=== PATIENT | male | born 1940 | race Caucasian/White ===

== ENCOUNTER 2016-07-04 02:29 | Emergency (ER) | payer OTHER, MEDICARE ==
--- NOTE | 2016-07-04 03:00 | ERPHSYRPT ---
- History of Present Illness Time Seen by Provider: 07/04/16 02:54 Source: patient Exam Limitations: no limitations Physician History: This is a 76-year-old white male with a history of atherosclerotic coronary artery disease, myocardial infarction, cardiac pacer/defibrillator, cardiac stents. He arrives with complaint that his pacer/defibrillator is alarming symptoms since 9:30 PM. Patient states has been alarming every 3 hours since that time. He denies any shortness of breath she denies any chest pain he states his defibrillator is not firing. He really denies any complaints other than the alarming of his pacer defibrillator. Past medical history includes coronary artery disease, high blood pressure, myocardial infarction, pacer defibrillator, cardiac stents. Past surgical history includes pacer defibrillator placement, cardiac stents, hernia repair. Timing/Duration: today Severity: mild Modifying Factors: Improves With: nothing Associated Symptoms: other (patient's pacer/defibrillator has been alarming), No nausea, No vomiting, No abdominal pain, No shortness of breath, No heartburn , No diaphoresis, No cough, No chills, No chest pain, No fever, No headaches, No loss of appetite, No malaise, No rash, No syncope, No seizure, No weakness Allergies/Adverse Reactions: terazosin Allergy (Verified 08/24/15 03:58) Home Medications: Amiodarone HCl 200 mg [Cordarone 200 MG] 08/24/15 [History] Aspirin 81 gm Chew [Baby Aspirin 81 mg Chew] 08/24/15 [History] Cholecalciferol (Vitamin D3) [Vitamin D-3] 08/24/15 [History] Levothyroxine Sodium [Tirosint] 08/24/15 [History] Losartan/Hydrochlorothiazide [Losartan-Hctz 50-12.5 mg Tab] 08/24/15 [History] Metoprolol Tartrate 08/24/15 [History] Simvastatin 40 mg [Zocor 40 mg] 08/24/15 [History] Tamsulosin HCl [Flomax] 08/24/15 [History] Warfarin Sodium 3 mg [Coumadin 3 MG] 08/24/15 [History] Hx Tetanus, Diphtheria Vaccination/Date Given: Yes Hx Influenza Vaccination/Date Given: Yes Hx Pneumococcal Vaccination/Date Given: Yes - Review of Systems Constitutional: No Fever, No Chills Eyes: No Symptoms Ears, Nose, & Throat: No Symptoms Respiratory: No Cough, No Dyspnea Cardiac: No Symptoms, Other (Patient's pacer/defibrillator has been alarming), No Chest Pain, No Edema, No Palpitations, No Syncope, No Orthopnea, No PND Abdominal/Gastrointestinal: No Abdominal Pain, No Nausea, No Vomiting, No Diarrhea Genitourinary Symptoms: No Dysuria Musculoskeletal: No Back Pain, No Neck Pain Skin: No Rash Neurological: No Dizziness, No Focal Weakness, No Sensory Changes Psychological: No Symptoms Endocrine: No Symptoms All Other Systems: Reviewed and Negative - Past Medical History Pertinent Past Medical History: Yes Cardiac History: Coronary Artery Disease, Hypertension, Myocardial Infarction ( [place]), Other Other Medical History: pacer/aicd to left chest/ stents in the past to heart - Past Surgical History Past Surgical History: Yes Gastrointestinal: Hernia Repair Other Surgical History: pacer aicd placement, past GI surgery - Social History Smoking Status: Never smoker Exposure to second hand smoke: No Drug Use: none Patient Lives Alone: No - Nursing Vital Signs Nursing Vital Signs: Initial Vital Signs Pulse Rate [Radial] 72 Pulse Rate 59 Respiratory Rate 18 Blood Pressure 101/60 Pain Intensity 0 - Physical Exam General Appearance: no apparent distress, alert Eye Exam: PERRL/EOMI, eyes nml inspection Ears, Nose, Throat Exam: normal ENT inspection, TMs normal, pharynx normal, moist mucous membranes Neck Exam: normal inspection, non-tender, supple, full range of motion Respiratory Exam: normal breath sounds, lungs clear, other (pacer/defibrillator in place left upper chest), No respiratory distress Cardiovascular Exam: regular rate/rhythm, normal heart sounds, normal peripheral pulses Gastrointestinal/Abdomen Exam: soft, normal bowel sounds, No tenderness, No mass Back Exam: normal inspection, normal range of motion, No CVA tenderness, No vertebral tenderness Extremity Exam: normal inspection, normal range of motion, pelvis stable Neurologic Exam: alert, oriented x 3, cooperative, normal mood/affect, nml cerebellar function, nml station & gait, sensation nml, No motor deficits Skin Exam: normal color, warm, dry, No rash Lymphatic Exam: No adenopathy SpO2 Interpretation: normal - Course Nursing assessment & vital signs reviewed: Yes EKG Interpreted by Me: RATE (50 bpm), Left [place] Deviation, Other (paced rhythm 50 bpm intraventricular conduction delay, no acute st/t wave changes, no old ekg 's for comparison) Ordered Tests: Active Orders 24 hr Category Date Time Status EKG-ER Only STAT Care 07/04/16 02:52 Active IV Insertion STAT Care 07/04/16 02:53 Inactive CBC W DIFF Stat Lab 07/04/16 03:05 Completed CMP Stat Lab 07/04/16 03:05 Completed TROPONIN Q3H Lab 07/04/16 03:05 Completed TROPONIN Q3H Lab 07/04/16 06:00 Ordered TROPONIN Q3H Lab 07/04/16 09:00 Ordered TROPONIN Q3H Lab 07/04/16 12:00 Ordered TROPONIN Q3H Lab 07/04/16 15:00 Ordered Lab/Rad Data: Laboratory Result Diagrams 07/04/16 03:05 07/04/16 03:05 Laboratory Results 07/04/16 07/04/16 07/04/16 Range/Units 03:05 03:05 03:05 WBC 6.0 (4.0-10.5) K/mm3 RBC 3.91 L (4.1-5.6) M/mm3 Hgb 12.3 L (12.5-18.0) gm/dl Hct 37.5 L (42-50) % MCV 95.9 (78-100) fl MCH 31.4 (26-32) pg MCHC 32.8 (32-36) g/dl RDW 13.6 (11.5-14.0) % Plt Count 161 (150-450) K/mm3 MPV 9.4 (6-9.5) fl Gran % 53.3 (36.0-66.0) % Lymphocytes % 26.7 (24.0-44.0) % Monocytes % 17.0 H (0.0-12.0) % Eosinophils % 2.7 (0.00-5.0) % Basophils % 0.3 (0.0-0.4) % Basophils # 0.02 (0-0.4) Sodium 146 H (136-145) mEq/L Potassium 4.0 (3.5-5.1) mEq/L Chloride 107 (98-107) mEq/L Carbon Dioxide 30.8 (21-32) mEq/L Anion Gap 11.8 (5-15) MEQ/L BUN 24 H (9-20) mg/dL Creatinine 1.37 H (0.55-1.30) mg/dl Estimated GFR 54 ML/MIN Glucose 106 (70-110) MG/DL Calcium 8.7 (8.5-10.1) mg/dL Total Bilirubin 0.5 (0.2-1.0) mg/dL AST 13 L (15-37) U/L ALT 15 (12-78) U/L Alkaline Phosphatase 72 (46-116) U/L Troponin I < 0.017 (0.000-0.056) ng/ml Serum Total Protein 6.5 (6.4-8.2) gm/dL Albumin 3.3 L (3.4-5.0) g/dL - Progress Progress: improved Progress Note: 07/04/16 02:58 This is a 76-year-old white male with history of atherosclerotic coronary artery disease who has a cardiac pacer/defibrillator in place he arrives with complaints that the pacer/defibrillator has been alarming since 9:30 this evening and has been going off every 3 hours since. Patient denies any chest pain shortness of breath he states he does not feel ill. Patient states he was unable to reach the people who produced his pacer defibrillator. Patient appears to be stable vitals are stable. We did contact the patient's defibrillator contact source.([employer]) And they stated that if the patient has a normal EKG and labs and appears to be hemodynamically stable. That he should return home where he has the monitor for his device. And contact his cardiac clinic in the morning. Will go ahead and obtain CBC, CMP, troponin, EKG. If these appear to be stable will consider discharge. 07/04/16 03:26 07/04/16 03:53 Patient with no distress. EKG shows 1 paced beat no acute changes. Troponin CBC CMP essentially normal. Patient has been stable on the monitor. Will plan to discharge. ER audio visual secretary has gone over patient's contact for his [employer] rental sales representative hotline with the patient. Patient to contact his clinic in the morning. Return for any problems. - Departure Time of Disposition: 03:54 Departure Disposition: Home Clinical Impression: Pacemaker complications Qualifiers: Encounter type: initial encounter Qualified Code(s): T82.9XXA - Unspecified complication of cardiac and vascular prosthetic device, implant and graft, initial encounter Condition: Fair Critical Care Time: No Additional Instructions: Return home. Rest. Follow-up with your cardiac clinic tomorrow (call) Contact [employer] rental sales representative hot line if problems. Return for any problems. Return for acute distress or for severe symptoms.
[2016-07-04 03:11] LABS: BASOPHIL % 0.3 % (0.0-0.4); Eosinophil % 2.7 % (0.00-5.0); Granulocytes % 53.3 % (36.0-66.0); Lymphocytes % 26.7 % (24.0-44.0); Mean Cell Volume 95.9 fl (78-100); Mean Platelet Volume 9.4 fl (6-9.5); Platelet Count 161 K/mm3 (150-450); Red Blood Count 3.91 M/mm3 (4.1-5.6); Red Cell Distribution Width 13.6 % (11.5-14.0)
[2016-07-04 03:13] LABS: Mean Corpuscular Hemoglobin 31.4 pg (26-32)
[2016-07-04 03:35] LABS: ALBUMIN 3.3 g/dL (3.4-5.0); ANION GAP 11.8 MEQ/L (5-15); BILIRUBIN,TOTAL 0.5 mg/dL (0.2-1.0); Carbon Dioxide 30.8 mEq/L (21-32); Total Protein 6.5 gm/dL (6.4-8.2)
[2016-07-04 04:14] VITALS: BP 108/78; PULSE 72; O2SAT 99
== END 2016-07-04 04:15 | disposition home or self-care (01) ==
LOC: ED 02:29
DX: T82.9XXA Unspecified complication of cardiac and vascular prosthetic device, implant and graft, initial encounter (principal); I25.10 Atherosclerotic heart disease of native coronary artery without angina pectoris; I10 Essential (primary) hypertension; I25.2 Old myocardial infarction; Z98.61 Coronary angioplasty status; Z79.899 Other long term (current) drug therapy; Z79.01 Long term (current) use of anticoagulants
CPT/HCPCS: 36415; 80053; 84484; 85025; 93005; 99283

== ENCOUNTER 2020-11-10 16:52 | Emergency (ER) | payer MEDICARE, OTHER ==
[2020-11-10] MEDS ORDERED: TYLENOL 325 MG PO ONE (17:15)
[2020-11-10] MEDS ORDERED: Sodium Chloride 0.9% 500 ML 500 ML IV ONE ×2 (17:18→18:25)
[2020-11-10 17:41] LABS: Absolute Neutrophil Ct (ANC) 12.71 (1.4-6.9); BASOPHIL % 0.1 % (0.0-0.4); Basophil (Absolute #) 0.01 (0-0.4); Eosinophil % 0.1 % (0.00-5.0); Eosinophil (Absolute #) 0.01 (0-0.5); Hematocrit 37.9 % (42-50); Hemoglobin 12.2 gm/dl (12.5-18.0); Lymphocyte (Absolute #) 1.26 (1.0-4.6); Lymphocytes % 8.1 % (24.0-44.0); Mean Cell Volume 96.7 fl (78-100); Mean Corpuscular Hemoglobin 31.1 pg (26-32); Mean Corpuscular Hgb Concent. 32.2 g/dl (32-36); Mean Platelet Volume 10.2 fl (7.5-11.0); Monocyte (Absolute #) 1.49 (0.0-1.3); Monocytes % 9.6 % (0.0-12.0); Neutrophil % 82.1 % (36.0-66.0); Platelet Count 175 K/mm3 (150-450); Red Blood Count 3.92 M/mm3 (4.1-5.6); Red Cell Distribution Width 13.7 % (11.5-14.0); White Blood Count 15.5 K/mm3 (4.0-10.5)
--- NOTE | 2020-11-10 17:41 | ERPHSYRPT ---
- History of Present Illness Time Seen by Provider: 11/10/20 17:04 Source: patient Exam Limitations: no limitations Patient Subjective Stated Complaint: pt here fever, not eating well, urinary urgency since sat Triage Nursing Assessment: pt alert, resp easy, skin w/d/p, no edema noted Physician History: 80 years old male presented in the ER with chief complaint of intermittent fever for the last 3 days with a T-max of 102 prior to arrival today. Is also having generalized weakness fatigue and tiredness with lack of appetite. Minimal nonproductive cough without any chest pain or shortness of breath. No abdominal pain nausea or vomiting. Patient also report having mild dysuria earlier today without hematuria urgency or increased frequency. Did receive both shots of Covid vaccine. Timing/Duration: day(s) (3), intermittent, gradual onset, worse Fever Severity: moderate Associated Symptoms: cough, muscle aches, weakness, No abdominal pain, No chest pain, No confusion, No nausea/vomiting, No rhinorrhea, No shortness of breath, No sore throat, No stiff neck, No syncope Allergies/Adverse Reactions: terazosin Allergy (Verified 11/10/20 17:05) Home Medications: Aspirin 81 gm Chew [Baby Aspirin 81 mg Chew] 1 tab DAILY 08/24/15 [History] Cholecalciferol (Vitamin D3) [Vitamin D-3] 1 tab DAILY 08/24/15 [History] Levothyroxine Sodium [Tirosint] 15 ea DAILY 08/24/15 [History] Metoprolol Tartrate 50 mg DAILY 08/24/15 [History] Tamsulosin HCl [Flomax] 1 ea .ROUTE DAILY 08/24/15 [History] Apixaban [Eliquis] 5 mg PO DAILY 07/04/16 [History] Hx Tetanus, Diphtheria Vaccination/Date Given: Yes Hx Influenza Vaccination/Date Given: Yes Hx Pneumococcal Vaccination/Date Given: No Immunizations Up to Date: Yes Travel Risk - International Travel Have you traveled outside of the country in past 3 weeks: No - Coronavirus Screening Are you exhibiting any of the following symptoms?: Yes Symptoms: Fever - Vaccine Status Have you recieved a Covid-19 vaccination: Yes Fur Examiner: Moderna - Vaccination Dates Date of 2cond Vaccination (if applicable): august - Review of Systems Constitutional: Fever, Chills, Fatigue, Weakness Eyes: No Symptoms Ears, Nose, & Throat: No Symptoms Respiratory: Cough Cardiac: No Symptoms Abdominal/Gastrointestinal: No Symptoms Genitourinary Symptoms: Dysuria Musculoskeletal: Myalgias Skin: No Symptoms Neurological: No Symptoms Psychological: No Symptoms Endocrine: No Symptoms Hematologic/Lymphatic: No Symptoms Immunological/Allergic: No Symptoms - Past Medical History Pertinent Past Medical History: Yes Cardiac History: Coronary Artery Disease, Hypertension, Myocardial Infarction ([place]), Other Other Medical History: pacer/aicd to left chest/ stents in the past to heart - Past Surgical History Past Surgical History: Yes Gastrointestinal: Hernia Repair Other Surgical History: pacer aicd placement, past GI surgery - Social History Smoking Status: Former smoker Exposure to second hand smoke: No Drug Use: none Patient Lives Alone: No - Nursing Vital Signs Nursing Vital Signs: Initial Vital Signs Temperature 99.0 F 11/10/20 17:01 Pulse Rate 72 11/10/20 17:01 Respiratory Rate 16 11/10/20 17:01 Blood Pressure 130/83 11/10/20 17:01 O2 Sat by Pulse Oximetry 96 11/10/20 17:01 Pain Scale Pain Intensity 0 - Physical Exam General Appearance: no apparent distress, alert Eye Exam: PERRL/EOMI, eyes nml inspection ENT Exam: normal ENT inspection, pharyngeal erythema Neck Exam: normal inspection, non-tender, supple, full range of motion Respiratory Exam: normal breath sounds, decreased breath sounds, crackles/rales, wheezing Cardiovascular/Chest Exam: normal heart sounds, regular rate/rhythm Gastrointestinal/Abdominal Exam: soft, non tender, no distention, no mass, no guarding Extremity Exam: non-tender, normal range of motion, normal inspection Neurologic Exam: alert, oriented x 3, cooperative Skin Exam: normal color SpO2 Interpretation: normal SpO2: 96 O2 Delivery: Room Air Ordered Tests: Active Orders 24 hr Category Date Time Status IV Insertion STAT Care 11/10/20 17:15 Active Oxygen-ED Only Nasal Cannula 2 lpm Care 11/10/20 18:20 Active CHEST 1 VIEW (PORTABLE) Stat Exams 11/10/20 17:16 Taken BLOOD CULTURE Stat Lab 11/10/20 17:16 Ordered CBC W DIFF Stat Lab 11/10/20 17:15 Completed CMP Stat Lab 11/10/20 17:15 Completed CULTURE,URINE Stat Lab 11/10/20 19:54 Received INFLUENZA A+B KAREEN Stat Lab 11/10/20 17:17 Completed Lactic Acid Stat Lab 11/10/20 17:15 Completed MAG [MAGNESIUM] Stat Lab 11/10/20 17:18 Completed UA W/RFX UR CULTURE Stat Lab 11/10/20 19:54 Completed Respiratory Therapy Assessment DAILY RT 11/10/20 18:27 Active Medication Summary Discontinued Medications Generic Name Dose Route Start Last Admin Trade Name Freq PRN Reason Stop Dose Admin Acetaminophen 650 mg 11/10/20 17:15 11/10/20 18:31 Tylenol 325 Mg PO 11/10/20 17:16 650 mg STAT ONE Administration Acetaminophen Confirm 11/10/20 18:25 Tylenol 325 Mg Administered 11/10/20 18:26 Dose 650 mg .ROUTE .STK-MED ONE Albuterol/Ipratropium 3 ml 11/10/20 17:57 11/10/20 18:22 Duoneb 0.5-3 Mg/3 Ml Neb IH 11/10/20 17:58 3 ml STAT ONE Administration Albuterol/Ipratropium Confirm 11/10/20 18:17 Duoneb 0.5-3 Mg/3 Ml Neb Administered 11/10/20 18:18 Dose 3 ml IH .STK-MED ONE Sodium Chloride 500 mls @ 500 mls/hr 11/10/20 17:18 11/10/20 18:32 Sodium Chloride 0.9% 500 Ml IV 11/10/20 18:17 500 mls/hr .Q1H ONE Administration Ceftriaxone Sodium/Dextrose 1 g in 50 mls @ 100 mls/hr 11/10/20 17:56 11/10/20 18:34 Rocephin 1 Gm-D5w 50 Ml Bag IV 11/10/20 18:25 100 ml/hr STAT STA 100 mls/hr Administration Azithromycin 500 mg in 250 mls @ 250 mls/hr 11/10/20 17:56 11/10/20 19:10 Zithromax 500 Mg/ 250 Ml Nacl Premix IV 11/10/20 18:55 250 ml/hr STAT STA 250 mls/hr Administration Azithromycin Confirm 11/10/20 18:25 Zithromax 500 Mg/ 250 Ml Nacl Premix Administered 11/10/20 18:26 Dose 500 mg in 250 mls @ ud IV .STK-MED ONE Ceftriaxone Sodium/Dextrose Confirm 11/10/20 18:25 Rocephin 1 Gm-D5w 50 Ml Bag Administered 11/10/20 18:26 Dose 1 g in 50 mls @ ud IV .STK-MED ONE Sodium Chloride Confirm 11/10/20 18:25 Sodium Chloride 0.9% 500 Ml Administered 11/10/20 18:26 Dose 500 mls @ ud IV .STK-MED ONE Lab/Rad Data: Laboratory Result Diagrams 11/10/20 17:15 11/10/20 17:15 Laboratory Results 11/10/20 11/10/20 11/10/20 Range/Units 19:54 17:18 17:17 WBC (4.0-10.5) K/mm3 RBC (4.1-5.6) M/mm3 Hgb (12.5-18.0) gm/dl Hct (42-50) % MCV (78-100) fl MCH (26-32) pg MCHC (32-36) g/dl RDW (11.5-14.0) % Plt Count (150-450) K/mm3 MPV (7.5-11.0) fl Gran % (36.0-66.0) % Eos # (Auto) (0-0.5) Absolute Lymphs (auto) (1.0-4.6) Absolute Monos (auto) (0.0-1.3) Lymphocytes % (24.0-44.0) % Monocytes % (0.0-12.0) % Eosinophils % (0.00-5.0) % Basophils % (0.0-0.4) % Absolute Granulocytes (1.4-6.9) Basophils # (0-0.4) Sodium (137-145) mmol/L Potassium (3.5-5.1) mmol/L Chloride (98-107) mmol/L Carbon Dioxide (22-30) mmol/L Anion Gap (5-15) MEQ/L BUN (9-20) mg/dL Creatinine (0.66-1.25) mg/dL Estimated GFR ML/MIN Glucose (74-106) mg/dL Lactic Acid (0.4-2.0) Calcium (8.4-10.2) mg/dL Magnesium 2.0 (1.6-2.3) mg/dL Total Bilirubin (0.2-1.3) mg/dL AST (17-59) U/L ALT (0-50) U/L Alkaline Phosphatase (38-126) U/L Serum Total Protein (6.3-8.2) g/dL Albumin (3.5-5.0) g/dL Urine Color MARCUS (YELLOW) Urine Appearance CLOUDY (CLEAR) Urine pH 5.0 (5-6) Ur Specific [place] 1.024 (1.005-1.025) Urine Protein 100 (Negative) Urine Ketones NEGATIVE (NEGATIVE) Urine Blood LARGE (0-5) Demetrius/ul Urine Nitrite NEGATIVE (NEGATIVE) Urine Bilirubin NEGATIVE (NEGATIVE) Urine Urobilinogen 4 (0-1) mg/dL Ur Leukocyte Esterase MODERATE (NEGATIVE) Urine WBC (Auto) >100 (0-5) /HPF Urine RBC (Auto) 26-50 (0-2) /HPF U Epithel Cells (Auto) NONE (FEW) /HPF Urine Bacteria (Auto) FEW (NEGATIVE) /HPF Urine Mucus (Auto) SLIGHT (NEGATIVE) /HPF Urine Culture Reflexed YES (NO) Urine Glucose NEGATIVE (NEGATIVE) mg/dL Influenza Type A Ag (NEGATIVE) Influenza Type B Ag (NEGATIVE) Group A Strep Antibody NOT DETECTED (NEGATIVE) 11/10/20 11/10/20 11/10/20 Range/Units 17:17 17:15 17:15 WBC (4.0-10.5) K/mm3 RBC (4.1-5.6) M/mm3 Hgb (12.5-18.0) gm/dl Hct (42-50) % MCV (78-100) fl MCH (26-32) pg MCHC (32-36) g/dl RDW (11.5-14.0) % Plt Count (150-450) K/mm3 MPV (7.5-11.0) fl Gran % (36.0-66.0) % Eos # (Auto) (0-0.5) Absolute Lymphs (auto) (1.0-4.6) Absolute Monos (auto) (0.0-1.3) Lymphocytes % (24.0-44.0) % Monocytes % (0.0-12.0) % Eosinophils % (0.00-5.0) % Basophils % (0.0-0.4) % Absolute Granulocytes (1.4-6.9) Basophils # (0-0.4) Sodium 138 (137-145) mmol/L Potassium 4.6 (3.5-5.1) mmol/L Chloride 101 (98-107) mmol/L Carbon Dioxide 31 H (22-30) mmol/L Anion Gap 10.3 (5-15) MEQ/L BUN 29 H (9-20) mg/dL Creatinine 1.50 H (0.66-1.25) mg/dL Estimated GFR 48.0 ML/MIN Glucose 125 H (74-106) mg/dL Lactic Acid 1.4 (0.4-2.0) Calcium 9.1 (8.4-10.2) mg/dL Magnesium (1.6-2.3) mg/dL Total Bilirubin 1.10 (0.2-1.3) mg/dL AST 43 (17-59) U/L ALT 30 (0-50) U/L Alkaline Phosphatase 60 (38-126) U/L Serum Total Protein 7.0 (6.3-8.2) g/dL Albumin 3.8 (3.5-5.0) g/dL Urine Color (YELLOW) Urine Appearance (CLEAR) Urine pH (5-6) Ur Specific [place] (1.005-1.025) Urine Protein (Negative) Urine Ketones (NEGATIVE) Urine Blood (0-5) Demetrius/ul Urine Nitrite (NEGATIVE) Urine Bilirubin (NEGATIVE) Urine Urobilinogen (0-1) mg/dL Ur Leukocyte Esterase (NEGATIVE) Urine WBC (Auto) (0-5) /HPF Urine RBC (Auto) (0-2) /HPF U Epithel Cells (Auto) (FEW) /HPF Urine Bacteria (Auto) (NEGATIVE) /HPF Urine Mucus (Auto) (NEGATIVE) /HPF Urine Culture Reflexed (NO) Urine Glucose (NEGATIVE) mg/dL Influenza Type A Ag NEGATIVE (NEGATIVE) Influenza Type B Ag NEGATIVE (NEGATIVE) Group A Strep Antibody (NEGATIVE) 11/10/20 Range/Units 17:15 WBC 15.5 H (4.0-10.5) K/mm3 RBC 3.92 L (4.1-5.6) M/mm3 Hgb 12.2 L (12.5-18.0) gm/dl Hct 37.9 L (42-50) % MCV 96.7 (78-100) fl MCH 31.1 (26-32) pg MCHC 32.2 (32-36) g/dl RDW 13.7 (11.5-14.0) % Plt Count 175 (150-450) K/mm3 MPV 10.2 (7.5-11.0) fl Gran % 82.1 H (36.0-66.0) % Eos # (Auto) 0.01 (0-0.5) Absolute Lymphs (auto) 1.26 (1.0-4.6) Absolute Monos (auto) 1.49 H (0.0-1.3) Lymphocytes % 8.1 L (24.0-44.0) % Monocytes % 9.6 (0.0-12.0) % Eosinophils % 0.1 (0.00-5.0) % Basophils % 0.1 (0.0-0.4) % Absolute Granulocytes 12.71 H (1.4-6.9) Basophils # 0.01 (0-0.4) Sodium (137-145) mmol/L Potassium (3.5-5.1) mmol/L Chloride (98-107) mmol/L Carbon Dioxide (22-30) mmol/L Anion Gap (5-15) MEQ/L BUN (9-20) mg/dL Creatinine (0.66-1.25) mg/dL Estimated GFR ML/MIN Glucose (74-106) mg/dL Lactic Acid (0.4-2.0) Calcium (8.4-10.2) mg/dL Magnesium (1.6-2.3) mg/dL Total Bilirubin (0.2-1.3) mg/dL AST (17-59) U/L ALT (0-50) U/L Alkaline Phosphatase (38-126) U/L Serum Total Protein (6.3-8.2) g/dL Albumin (3.5-5.0) g/dL Urine Color (YELLOW) Urine Appearance (CLEAR) Urine pH (5-6) Ur Specific [place] (1.005-1.025) Urine Protein (Negative) Urine Ketones (NEGATIVE) Urine Blood (0-5) Demetrius/ul Urine Nitrite (NEGATIVE) Urine Bilirubin (NEGATIVE) Urine Urobilinogen (0-1) mg/dL Ur Leukocyte Esterase (NEGATIVE) Urine WBC (Auto) (0-5) /HPF Urine RBC (Auto) (0-2) /HPF U Epithel Cells (Auto) (FEW) /HPF Urine Bacteria (Auto) (NEGATIVE) /HPF Urine Mucus (Auto) (NEGATIVE) /HPF Urine Culture Reflexed (NO) Urine Glucose (NEGATIVE) mg/dL Influenza Type A Ag (NEGATIVE) Influenza Type B Ag (NEGATIVE) Group A Strep Antibody (NEGATIVE) - Progress Progress: improved, re-examined Progress Note: 11/10/20 19:00 80 years old is evaluated for fever chills with cough. Patient was desatting to 88% on room air. He is given neb treatment and placed on 2 L oxygen with improvement in saturation to 96%. Not in any distress. Chest x-ray showed bilateral pneumonic infiltrate and started on Rocephin/Zithromax. Work- up showed white count of 15 and a normal lactate of 1.4. Patient probably have some chronic kidney disease with a creatinine of 1.5 and BUN of 29 with no baseline comparison available here. He is a [place] patient and [facility] transfer line is called, waiting on hospitalist from there. 11/10/20 20:[address] Tavarez from [place] hospitalist, reviewed patient presentation, work-up and current management, agreed with transfer. Plan discussed with patient who understand and agrees with going up there. Discussed with Dr.: Other (Dr. Tavarez [facility]) Counseled pt/family regarding: lab results, diagnosis, rad results - Departure Departure Disposition: Transfer Clinical Impression: Respiratory failure Qualifiers: Chronicity: acute Respiratory failure complication: hypoxia Qualified Code(s): J96.01 - Acute respiratory failure with hypoxia Bilateral pneumonia Qualifiers: Pneumonia type: due to unspecified organism Lung location: lower lobe of lung Qualified Code(s): J18.9 - Pneumonia, unspecified organism Condition: Stable Critical Care Time: No Referrals: HOSPITAL,'S [Primary Care Provider] -
[2020-11-10 17:54] LABS: ALBUMIN 3.8 g/dL (3.5-5.0); ANION GAP 10.3 MEQ/L (5-15); BILIRUBIN,TOTAL 1.1 mg/dL (0.2-1.3); Calcium 9.1 mg/dL (8.4-10.2); Creatinine 1 1.5 mg/dL (0.66-1.25); Potassium 4.6 mmol/L (3.5-5.1)
[2020-11-10] MEDS ORDERED: ROCEPHIN 1 Gm-D5w 50 ml Bag** 1 G/50 ML IVPB IV STA (17:56)
[2020-11-10] MEDS ORDERED: Zithromax 500 MG/ 250 ML NaCl Premix 500 MG/250 ML IVPB IV STA (17:56)
[2020-11-10] MEDS ORDERED: DUONEB 0.5-3 MG/3 ml Neb IH ONE ×2 (17:57→18:17)
[2020-11-10 17:59] LABS: INFLUENZA A NEGATIVE (NEGATIVE); INFLUENZA B NEGATIVE (NEGATIVE)
[2020-11-10] MEDS ORDERED: TYLENOL 325 MG ONE (18:25)
[2020-11-10] MEDS ORDERED: Zithromax 500 MG/ 250 ML NaCl Premix 500 MG/250 ML IVPB IV ONE (18:25)
[2020-11-10] MEDS ORDERED: ROCEPHIN 1 Gm-D5w 50 ml Bag** 1 G/50 ML IVPB IV ONE (18:25)
[2020-11-10 20:06] LABS: Appearance CLOUDY (CLEAR); Bacteria FEW /HPF (NEGATIVE); Bilirubin NEGATIVE (NEGATIVE); Blood LARGE Ery/ul (0-5); Glucose NEGATIVE (NEGATIVE); Ketones NEGATIVE (NEGATIVE); Leukocyte Esterase MODERATE (NEGATIVE); Mucus SLIGHT /HPF (NEGATIVE); Nitrite NEGATIVE (NEGATIVE); Protein,Urine Dip 100 (Negative); RBC 26-50 /HPF (0-2); Specific Gravity 1.024 (1.005-1.025); Urobilinogen 4 mg/dL (0-1); WBC >100 /HPF (0-5)
[2020-11-10 20:10] VITALS: O2SAT 96
[2020-11-10 20:25] VITALS: BP 98/54; PULSE 64
--- NOTE | 2020-11-11 08:56 | XRAY ---
Indication: Fever. General ill feeling. Comparison: None Portable chest demonstrates mid to lower lung infiltrates/atelectasis left greater than right and small left effusion. Heart not enlarged with left AICD. Bony thorax intact with mild degenerative changes.
== END 2020-11-10 20:55 | disposition short-term general hospital (02) ==
LOC: ED 16:52
DX: J96.01 Acute respiratory failure with hypoxia (principal); J18.9 Pneumonia, unspecified organism; R53.1 Weakness; Z79.899 Other long term (current) drug therapy
CPT/HCPCS: 36000; 36415; 71045; 80053; 81001; 83605; 83735; 85025; 87040; 87086; 87400; 87651; 94640; 96360; 96365; 96367; 99285; J0456; J0696; A9270-GY

== ENCOUNTER 2022-10-11 08:26 | Day surgery (SDC) | payer OTHER ==
[2022-10-11] MEDS ORDERED: Lactated Ringers 1,000 ML IV ONE (08:55)
[2022-10-11] MEDS ORDERED: Lactated Ringers 1,000 ML IV SCH (09:00)
[2022-10-11] MEDS ORDERED: NON-FORMULARY ITEM OP ONE (09:00)
[2022-10-11] MEDS ORDERED: BETADINE 5% OPHTHALMIC 30 ML OP ONE (09:00)
[2022-10-11] MEDS ORDERED: Ak-Dilate OPHTHALMIC*** 1.065 ML, Cyclogyl 1% OPHTH SOL 1.065 ML, GATIFLOXACIN 0.5% OPH... OP ONE ×4 (09:00)
[2022-10-11] MEDS ORDERED: cefUROXime sodium 0.005 GM in Sodium Chloride Flush 30 ML*** 0.5 ML IJ ONE (09:00)
[2022-10-11] MEDS ORDERED: TETRACAINE 0.5% STERI-UNIT SOL OP ONE ×2 (09:00)
[2022-10-11] MEDS ORDERED: ACETAZOLAMIDE 250 MG TABLET PO ONE (10:00)
[2022-10-11] MEDS ORDERED: Zofran 4 MG/2 ML VIAL IV PRN (10:00)
[2022-10-11] MEDS ORDERED: DIPRIVAN 200 MG/20 ML IV ONE ×2 (11:21)
[2022-10-11 12:31] VITALS: BP 117/61; PULSE 65; O2SAT 97
== END 2022-10-11 12:42 | disposition home or self-care (01) ==
LOC: SDC 08:26
PROVIDERS: ATTEND Ophthalmology
DX: H25.811 Combined forms of age-related cataract, right eye (principal)
CPT/HCPCS: 99100; C1780; J2704; A9270-GY

== ENCOUNTER 2022-11-08 08:04 | Day surgery (SDC) | payer OTHER ==
[~2022-11-08 08:04] MED LIST: Ak-Dilate OPHTHALMIC*** 1.065 ML, Cyclogyl 1% OPHTH SOL 1.065 ML, GATIFLOXACIN 0.5% OPH... OP ONE; BETADINE 5% OPHTHALMIC 30 ML OP ONE; Lactated Ringers 1,000 ML IV SCH; NON-FORMULARY ITEM OP ONE; TETRACAINE 0.5% STERI-UNIT SOL OP ONE; cefUROXime sodium 0.005 GM in Sodium Chloride Flush 30 ML*** 0.5 ML IJ ONE
[2022-11-08] MEDS ORDERED: Lactated Ringers 1,000 ML IV ONE (08:46)
[2022-11-08] MEDS ORDERED: ACETAZOLAMIDE 250 MG TABLET PO ONE (09:00)
[2022-11-08] MEDS ORDERED: Zofran 4 MG/2 ML VIAL IV PRN (09:00)
[2022-11-08] MEDS ORDERED: SUBLIMAZE 100 MCG/2 ML ONE (10:20)
[2022-11-08] MEDS ORDERED: Versed 2 MG/2 ML Injection ONE (10:20)
[2022-11-08] MEDS ORDERED: Xylocaine-Mpf 2% 5 Ml Vial ONE (10:20)
[2022-11-08] MEDS ORDERED: DIPRIVAN 200 MG/20 ML IV ONE (10:20)
[2022-11-08 11:02] VITALS: BP 116/66; PULSE 59; O2SAT 94
== END 2022-11-08 11:06 | disposition home or self-care (01) ==
LOC: SDC 08:04
PROVIDERS: ATTEND Ophthalmology
DX: H25.812 Combined forms of age-related cataract, left eye (principal)
CPT/HCPCS: C1780; J2250; J2704; J3010; A9270-GY